=== PATIENT | male | born 1955 | race Caucasian/White ===

== ENCOUNTER 2025-03-14 14:24 | Emergency (ER) | payer MEDICARE, OTHER ==
[~2025-03-14] VITALS: Ht 180.3 cm; Wt 101.2 kg
[~2025-03-14 14:24] MED LIST: LOPRESSOR25 MG PO; NAPROXEN250 MG PO; PROTONIX40 MG PO; PROTONIX40 MG/ML PO; ZOFRAN ODT4 MG PO
[2025-03-14] MEDS ORDERED: ATORVASTATIN CA20 MG PO (14:52)
[2025-03-14] MEDS ORDERED: LOSARTAN POTASS25 MG PO (14:52)
[2025-03-14 15:04] VITALS: PULSE 90; RESP 18; TEMP 99.3; O2SAT 98
== END 2025-03-14 15:02 | disposition home or self-care (01) ==
LOC: FSED 14:46
DX: I10 Essential (primary) hypertension (principal); E78.5 Hyperlipidemia, unspecified; K21.9 Gastro-esophageal reflux disease without esophagitis; Z86.718 Personal history of other venous thrombosis and embolism
CPT/HCPCS: 99283